=== PATIENT | female | born 1990 | race Hispanic/Latino ===

== ENCOUNTER 2019-03-19 05:20 | Emergency (ER) | payer MEDICAID | END 2019-03-19 05:44 | disposition home or self-care (01) | LOC: EDH 05:20 | DX: O99.511 Diseases of the respiratory system complicating pregnancy, first trimester (principal); J01.90 Acute sinusitis, unspecified; Z88.1 Allergy status to other antibiotic agents; Z3A.01 Less than 8 weeks gestation of pregnancy ==